=== PATIENT | male | born 1965 | race Asian ===

== ENCOUNTER 2022-04-17 12:33 | Emergency (ER) | payer OTHER ==
[~2022-04-17] VITALS: Ht 167.6 cm; Wt 64.5 kg
[2022-04-17 12:58] VITALS: BP 109/75
[2022-04-17] MEDS ORDERED: NIRM1TAB PO (17:50)
== END 2022-04-17 18:06 | disposition home or self-care (01) ==
LOC: ER 12:33
DX: U07.1 COVID-19 (principal); R50.9 Fever, unspecified; Z79.899 Other long term (current) drug therapy
CPT/HCPCS: 87502; 87503; 87635; 99283; C9803